=== PATIENT | male | born 1995 | race American Indian/Alaskan Native ===

== ENCOUNTER 2017-06-24 15:09 | Emergency (ER) | payer OTHER ==
[2017-06-24] MEDS ORDERED: TYLENOL PO ONE (19:38)
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
[2017-06-24] MEDS ORDERED: TRIPLE ANTIBIOTIC TP ONE (19:39)
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
[2017-06-24 21:02] VITALS: BP 126/69
== END 2017-06-24 21:05 | disposition home or self-care (01) ==
LOC: ED 15:09
DX: S09.90XA Unspecified injury of head, initial encounter (principal); G44.319 Acute post-traumatic headache, not intractable; M50.80 Other cervical disc disorders, unspecified cervical region; V49.49XA Driver injured in collision with other motor vehicles in traffic accident, initial encounter; Y93.89 Activity, other specified; Y92.89 Other specified places as the place of occurrence of the external cause; Y99.8 Other external cause status
CPT/HCPCS: 70450; 72125; A6250